=== PATIENT | female | born 1995 | race American Indian/Alaskan Native ===

== ENCOUNTER 2016-08-11 16:56 | Emergency (ER) | payer SELFPAY ==
--- NOTE | 2016-08-11 19:49 | Emergency Department Report ---
Chief Complaint: Vaginal Bleeding Stated Complaint: ABD PAIN Time Seen by Provider: 08/11/16 19:44 - [facility] History of Present Illness: Patient is a 20-year-old female who presents with vaginal bleeding 1 month. Patient states she had a section on 02/19/2016. She states she went to her six-week checkup at her [facility] and received a Depo-Provera injection in June 19. Patient states bleeding began 06/30/2016 and has not seized since then. Patient describes vaginal bleeding as mild to moderate. She also states dysuria 2 days. She denies again any other medications. Patient denies fever/chills/nausea/vomiting/abdominal pain/headache/blurred vision or any other problems - ROS Review of Systems: As noted in HPI - Exam Vital Signs: Vital Signs 08/11/16 17:38 Temperature 98.5 F Pulse Rate 88 Blood Pressure 107/68 O2 Sat by Pulse 99 Oximetry Physical Exam: GENERAL: Alert and oriented x3, no apparent distress, Normal Gait, atraumatic. NECK: Supple. Non edematous, No carotid bruits. No lymphadenopathy or thyromegaly. LUNGS: Symetrical with respiration, No wheezing, no rales or crackles, CTAB. HEART: S1, S2 present, regular rate and rhythm without murmur, no rubs, no gallops. ABDOMEN: No organomegaly was noted,Positive bowel sounds, soft, and non- distended. . Nontender to palpation on all Quadrants, NO CVA tenderness. MSE screening note: Focused history and physical exam performed. Due to findings the following was ordered: ED Medical Decision Making - Lab Data Result diagrams: 08/11/16 20:01 - Medical Decision Making Vital signs stable. CBC normal. Ultrasound and urinalysis pending. Ultrasound normal patient may be seen over at [facility]. Breakthrough bleeding due to Depo-Provera. She may follow up with [facility] for another form of contraception. Needs [facility] referrals. ED Disposition for MSE Condition: Stable
[2016-08-11 20:22] LABS: Basophils % (Auto) 0.3 % (0.0-1.8); Eosinophils % (Auto) 1.1 % (0.0-4.3); Hematocrit 42.2 % (30.3-42.9); Mean Corpuscular HGB Conc 33 % (30-34); Mean Corpuscular Hemoglobin 28 pg (28-32); Mean Corpuscular Volume 84 fl (79-97); Platelet Count 358 K/mm3 (140-440); Red Blood Count 5.05 M/mm3 (3.65-5.03); Red Cell Distribution Width 13.5 % (13.2-15.2); White Blood Count 10.7 K/mm3 (4.5-11.0)
[2016-08-11 20:22] LABS: Bilirubin,Urine NEG (Negative); Blood,Urine LG (Negative); Ketones,Urine NEG (Negative); Leukocyte Esterase,Urine MOD (Negative); Mucus,Urine FEW /HPF; Nitrite,Urine NEG (Negative); Urobilinogen,Urine < 2.0 mg/dL (<2.0)
[2016-08-11 20:23] LABS: RBC,Urine > 182.0 /HPF (0.0-6.0)
--- NOTE | 2016-08-12 02:05 | Ultrasound Report ---
FINAL REPORT PROCEDURE: US TRANSVAGINAL TECHNIQUE: Real-time transabdominal sonography in multiple planes of the pelvis was performed. The pelvic structures, especially the ovaries were not optimally visualized. Transvaginal sonography was then performed to better evaluate the structures and/or abnormalities described below with image documentation. CPT 99353 and 60493 HISTORY: VAGINAL BLEED COMPARISON: No prior studies are available for comparison. FINDINGS: UTERUS Size: 8.9 x 4.1 x 5.8 cm. Endometrial thickness: 3.9 mm. Orientation: anteverted. Cervix: Normal. Fibroids/masses: None. RIGHT Ovary: 3 x 2.7 x 1.7 cm. Appearance: There are multiple small follicular cyst measuring up to 12 millimeters. LEFT Ovary: 3.1 x 1.8 x 1.8 cm. Appearance: There are multiple small follicular cysts measuring up to 10 millimeters.. Pelvic fluid: None. Other: None. IMPRESSION: The uterus is normal. There are small follicular cysts identified on each ovary.
--- NOTE | 2016-08-12 02:06 | Ultrasound Report ---
FINAL REPORT PROCEDURE: US TRANSVAGINAL TECHNIQUE: Real-time transabdominal sonography in multiple planes of the pelvis was performed. The pelvic structures, especially the ovaries were not optimally visualized. Transvaginal sonography was then performed to better evaluate the structures and/or abnormalities described below with image documentation. CPT 98826 and 58317 HISTORY: VAGINAL BLEED COMPARISON: No prior studies are available for comparison. FINDINGS: UTERUS Size: 8.9 x 4.1 x 5.8 cm. Endometrial thickness: 3.9 mm. Orientation: anteverted. Cervix: Normal. Fibroids/masses: None. RIGHT Ovary: 3 x 2.7 x 1.7 cm. Appearance: There are multiple small follicular cyst measuring up to 12 millimeters. LEFT Ovary: 3.1 x 1.8 x 1.8 cm. Appearance: There are multiple small follicular cysts measuring up to 10 millimeters.. Pelvic fluid: None. Other: None. IMPRESSION: The uterus is normal. There are small follicular cysts identified on each ovary. PROCEDURE: TECHNIQUE: HISTORY: COMPARISON: FINDINGS: IMPRESSION:
[2016-08-12 09:55] VITALS: BP 110/66
[2016-08-12] MEDS ORDERED: MOTRIN PO ONE (10:27)
[2016-08-12] MEDS ORDERED: MACROBID PO ONE (10:27)
--- NOTE | 2016-08-12 10:28 | Emergency Department Report ---
ED Female HPI - General Chief complaint: Vaginal Bleeding Stated complaint: ABD PAIN Time Seen by Provider: 08/12/16 09:27 Source: patient Mode of arrival: Ambulatory Limitations: No Limitations - History of Present Illness Initial comments: 20 yo female with no past medical history presents to the hospital complaining of vaginal bleeding for 1 month. Patient states for the first 3 weeks she was using aprox +4-5 pads a day but now have intermittent spotting. Patient has had intermittent superpubic cramping abdominal pain rated 8/10 in intensity for the past 2 days. She received her first control injection shot early June. Next scheduled appointment with [facility] is in September. She is requesting change in or additional control. Patient is sexually active with one partner and does not use condoms. - Related Data Previous Rx's Medication Instructions Recorded Last Taken Type Ibuprofen [Motrin] 600 mg PO Q8H PRN #30 tablet 08/12/16 Unknown Rx Nitrofurantoin Jennings/M-Cryst 100 mg PO Q12HR #14 capsule 08/12/16 Unknown Rx [Macrobid CAP] Allergies Allergy/AdvReac Type Severity Reaction Status Date / Time No Known Allergies Allergy Unverified 08/11/16 17:43 ED Review of Systems ROS: Stated complaint: ABD PAIN Other details as noted in HPI Comment: All other systems reviewed and negative Other: Constitutional: No fevers chills Eyes: No eye pain visual changes ENT: No ear pain or throat pain Neck: Denies pain Respiratory: Denies cough wheezing shortness of breath Cardiovascular: Denies chest pain, palpitations, syncope GI: Denies nausea, vomiting, diarrhea : Occasional dysuria Musculoskeletal: Denies back pain Skin: Denies rash, lesions, erythema Neurologic: Denies headache, numbness, weakness Psychiatric: Denies suicidal ideation, hallucinations ED Past Medical Hx - Past Medical History Previous Medical History?: No - Social History Smoking Status: Never Smoker Substance Use Type: None - Medications Home Medications: Home Medications Medication Instructions Recorded Confirmed Last Taken Type Ibuprofen [Motrin] 600 mg PO Q8H PRN #30 tablet 08/12/16 Unknown Rx Nitrofurantoin Jennings/M-Cryst 100 mg PO Q12HR #14 capsule 08/12/16 Unknown Rx [Macrobid CAP] ED Physical Exam - General Limitations: No Limitations - Other Other exam information: General: No limitations, patient is alert in no acute distress Head exam: Atraumatic, normocephalic Eyes exam: Normal appearance, pupils equal reactive to light, extraocular movements intact ENT: Moist mucous membrane, normal oropharynx Neck exam: Normal inspection, full range of motion, no meningismus nontender Respiratory exam: Clear to auscultation bilateral, no wheezes, rales, crackles Cardiovascular: Normal rate and rhythm, normal heart sounds Abdomen: Soft, nondistended, nontender, with normal bowel sounds, no rebound, or guarding : no bleeding, cmt, or adenxal tenderness. Extremity: Full range of motion normal inspection no deformity Back: Normal Inspection, full range of motion, no tenderness Neurologic: Alert, oriented x3, cranial nerves intact, no motor or sensory deficit Psychiatric: normal affect, normal mood Skin: Warm, dry, intact ED Course Vital Signs 08/11/16 08/11/16 08/12/16 17:38 23:28 05:14 Temperature 98.5 F 98.7 F 98.1 F Pulse Rate 88 72 73 Respiratory 16 70 H Rate Blood Pressure 107/68 Blood Pressure 104/66 111/70 [Left] O2 Sat by Pulse 99 100 100 Oximetry 08/12/16 08/12/16 09:53 09:54 Temperature Pulse Rate 70 Respiratory 18 18 Rate Blood Pressure Blood Pressure 110/66 [Left] O2 Sat by Pulse 100 100 Oximetry - Reevaluation(s) Reevaluation #1: 08/12/16 10:42 jaden provided ED Medical Decision Making - Lab Data Result diagrams: 08/11/16 20:01 Lab Results 08/11/16 08/11/16 08/11/16 Range/Units 20:00 20:01 20:01 WBC 10.7 (4.5-11.0) K/mm3 RBC 5.05 H (3.65-5.03) M/mm3 Hgb 14.0 (10.1-14.3) gm/dl Hct 42.2 (30.3-42.9) % MCV 84 (79-97) fl MCH 28 (28-32) pg MCHC 33 (30-34) % RDW 13.5 (13.2-15.2) % Plt Count 358 (140-440) K/mm3 Lymph % (Auto) 35.9 H (13.4-35.0) % Jennings % (Auto) 6.2 (0.0-7.3) % Eos % (Auto) 1.1 (0.0-4.3) % Baso % (Auto) 0.3 (0.0-1.8) % Lymph # 3.8 (1.2-5.4) K/mm3 Jennings # 0.7 (0.0-0.8) K/mm3 Eos # 0.1 (0.0-0.4) K/mm3 Baso # 0.0 (0.0-0.1) K/mm3 Seg Neutrophils % 56.5 (40.0-70.0) % Seg Neutrophils # 6.1 (1.8-7.7) K/mm3 HCG, Qual Negative (Negative) Urine Color Yellow (Yellow) Urine Turbidity Slightly-cloudy (Clear) Urine pH 6.0 (5.0-7.0) Ur Specific Wayne 1.028 (1.003-1.030) Urine Protein 30 mg/dl (Negative) mg/dL Urine Glucose (UA) Neg (Negative) mg/dL Urine Ketones Neg (Negative) mg/dL Urine Blood Lg (Negative) Urine Nitrite Neg (Negative) Urine Bilirubin Neg (Negative) Urine Urobilinogen < 2.0 (<2.0) mg/dL Ur Leukocyte Esterase Mod (Negative) Urine WBC (Auto) 32.0 H (0.0-6.0) /HPF Urine RBC (Auto) > 182.0 (0.0-6.0) /HPF U Epithel Cells (Auto) 1.0 (0-13.0) /HPF Urine Mucus Few /HPF Blood Type Antibody Screen 08/11/16 Range/Units 20:01 WBC (4.5-11.0) K/mm3 RBC (3.65-5.03) M/mm3 Hgb (10.1-14.3) gm/dl Hct (30.3-42.9) % MCV (79-97) fl MCH (28-32) pg MCHC (30-34) % RDW (13.2-15.2) % Plt Count (140-440) K/mm3 Lymph % (Auto) (13.4-35.0) % Jennings % (Auto) (0.0-7.3) % Eos % (Auto) (0.0-4.3) % Baso % (Auto) (0.0-1.8) % Lymph # (1.2-5.4) K/mm3 Jennings # (0.0-0.8) K/mm3 Eos # (0.0-0.4) K/mm3 Baso # (0.0-0.1) K/mm3 Seg Neutrophils % (40.0-70.0) % Seg Neutrophils # (1.8-7.7) K/mm3 HCG, Qual (Negative) Urine Color (Yellow) Urine Turbidity (Clear) Urine pH (5.0-7.0) Ur Specific Wayne (1.003-1.030) Urine Protein (Negative) mg/dL Urine Glucose (UA) (Negative) mg/dL Urine Ketones (Negative) mg/dL Urine Blood (Negative) Urine Nitrite (Negative) Urine Bilirubin (Negative) Urine Urobilinogen (<2.0) mg/dL Ur Leukocyte Esterase (Negative) Urine WBC (Auto) (0.0-6.0) /HPF Urine RBC (Auto) (0.0-6.0) /HPF U Epithel Cells (Auto) (0-13.0) /HPF Urine Mucus /HPF Blood Type O POSITIVE Antibody Screen Negative - Medical Decision Making Differential UTI, control side effect No signs of , anemia, or instability. Patient recovered antibiotics due to white cells and moderate leukocytes in urine although likely contaminated secondary to vaginal bleeding but patient has low number of the cells on the sample. GC chlamydia pending. Patient informed to go to medical records 3-4 days to obtain results. Patient requesting adjustment in her control however she just received a IM shot in June which lasted 3 months. Intermittent spotting can be a side effect. She was instructed to follow-up with her [facility] for further management. - Differential Diagnosis vaginitis, cervicitis, dysfunction uterine bleeding, uterine fibroids, anem Critical Care Time: No Critical care attestation.: If time is entered above; I have spent that time in minutes in the direct care of this critically ill patient, excluding procedure time. ED Disposition Clinical Impression: Uses control, Abnormal vaginal bleeding Disposition: DISCHARGED TO HOME OR SELFCARE Is pt being admited?: No Does the pt Need Aspirin: No Condition: Stable Instructions: Dysfunctional Uterine Bleeding (ED) Additional Instructions: Take the medication as prescribed. return if symptoms worsen. Prescriptions: Ibuprofen [Motrin] 600 mg PO Q8H PRN #30 tablet PRN Reason: Pain Nitrofurantoin Jennings/M-Cryst [Macrobid CAP] 100 mg PO Q12HR #14 capsule Referrals: DR HERMES [Other] - 3-5 Days (your preflight inspector) Time of Disposition: 10:27
== END 2016-08-12 10:45 | disposition home or self-care (01) ==
LOC: ED 16:56
DX: N93.9 Abnormal uterine and vaginal bleeding, unspecified (principal); Z53.21 Procedure and treatment not carried out due to patient leaving prior to being seen by health care provider
CPT/HCPCS: 36415; 76830; 76856; 81001; 84703; 85025; 86850; 86900; 86901; 87210; 87591

== ENCOUNTER 2020-09-16 07:32 | Observation (INO) | payer OTHER ==
[2020-09-16] MEDS ORDERED: SODIUM CHLORIDE 0.9% 1000 ML 1,000 ML IV ONE (07:45)
--- NOTE | 2020-09-16 07:50 | Event Note ---
ED Screening Note Date of service: 09/16/20 Time: 07:47 ED Screening Note: This 24-year-old female presents to the ED complaining of generalized intermittent sharp abdominal pain that started 3 AM this morning patient states she was sitting when the pain started. Patient admits some vomiting episodes but no diarrhea. Denies any past medical history, Tender to palpation abdomen, some distress due to pain This initial assessment/diagnostic orders/clinical plan/treatment(s) is/are subject to change based on patients health status, clinical progression and re- assessment by fellow clinical providers in the ED. Further treatment and workup at subsequent clinical providers discretion. Patient/guardian urged not to elope from the ED as their condition may be serious if not clinically assessed and managed. Initial orders include: Labs, CT, IV fluids
[2020-09-16] MEDS ORDERED: ONDANSETRON 4 MG/2 ML INJ IV ONE (08:03)
--- NOTE | 2020-09-16 08:03 | Emergency Department Report ---
HPI - General Chief Complaint: Abdominal Pain Time Seen by Provider: 09/16/20 07:56 - HPI HPI: This is a 24-year-old female who presents to the emergency department with complaint of generalized abdominal pain, along with nausea and vomiting, that started at about 3 AM this morning. She denies any vaginal bleeding or discharge, dysuria, back pain, fever, constipation or diarrhea. Currently the pain is 10 out of 10 in intensity and sharp. She says that she has the sensation like she needs to have a bowel movement or pass flatulence but has been able to do so. She denies any recent travel. She ate some Russian food last night, but her ate the same food and does not have any current symptoms. Her last menstrual cycle was 08/12/2020 and she says she is due for a menstrual cycle. She denies any past medical history. She has had 2 previous C-sections. No known aggravating or alleviating factors. ED Past Medical Hx - Past Medical History Previous Medical History?: Yes Additional medical history: childbirth by 2 - Surgical History Past Surgical History?: Yes Additional Surgical History: x 2 - Social History Smoking Status: Never Smoker Substance Use Type: Alcohol - Medications Home Medications: Home Medications Medication Instructions Recorded Confirmed Last Taken Type Ibuprofen [Motrin] 600 mg PO Q8H PRN #30 tablet 08/12/16 Unknown Rx Nitrofurantoin [place]/M-Cryst 100 mg PO Q12HR #14 capsule 08/12/16 Unknown Rx [Macrobid CAP] ED Review of Systems ROS: Stated complaint: ABD PAIN Other details as noted in HPI Comment: All other systems reviewed and negative Constitutional: denies: chills, fever Eyes: denies: eye pain, vision change ENT: denies: ear pain, throat pain Respiratory: denies: cough, shortness of breath Cardiovascular: denies: chest pain, palpitations Gastrointestinal: abdominal pain, nausea, vomiting Genitourinary: denies: dysuria, discharge Musculoskeletal: denies: back pain, arthralgia Skin: denies: rash, lesions Neurological: denies: headache, weakness Physical Exam - Physical Exam Vital Signs: Vital Signs 09/16/20 07:45 Temperature 97.8 F Pulse Rate 80 Respiratory 20 Rate Blood Pressure 75/45 [Left] Blood Pressure 62/26 [Right] O2 Sat by Pulse 99 Oximetry Physical Exam: GENERAL: The patient is well-developed well-nourished. HENT: Normocephalic. Atraumatic. Patient has moist mucous membranes. EYES: Extraocular motions are intact. NECK: Supple. Trachea is midline. CHEST/LUNGS: Clear to auscultation. There is no respiratory distress noted. HEART/CARDIOVASCULAR: Regular. There is no tachycardia. There is no murmur. ABDOMEN: Abdomen is soft. Generalized abdominal tenderness to palpation, lower quadrants greater than upper. Patient has normal bowel sounds. There is no abdominal distention. SKIN: Skin is warm and dry. NEURO: The patient is awake, alert, and oriented. The patient is cooperative. The patient has no focal neurologic deficits. Normal speech. MUSCULOSKELETAL: There is no tenderness or deformity. There is no limitation range of motion. ED Course Vital Signs 09/16/20 07:45 Temperature 97.8 F Pulse Rate 80 Respiratory 20 Rate Blood Pressure 75/45 [Left] Blood Pressure 62/26 [Right] O2 Sat by Pulse 99 Oximetry - Reevaluation(s) Reevaluation #1: 09/16/20 08:44 The patient's qualitative serum test came back positive. A quantitative test has been ordered, as have ultrasounds. The patient says that with this she is G4, P2. She does have a history of what sounds like a previous ectopic that was treated with methotrexate that occurred about 1 to 2 years ago. - Consultations Consultation #1: 09/16/20 11:01 I spoke to the SURVEILLANCE AGENT on-call, Dr. Gtz. We discussed the patient's beta-hCG of 9100, the ultrasound results showing no evidence of IUP with a small echogenic focus seen in the right ovary, as well as the patient's history of previous ectopic. Dr. Gtz is going to come see the patient in the emergency department and says the patient may need a diagnostic laparoscopy. ED Medical Decision Making - Lab Data Result diagrams: 09/16/20 08:11 09/16/20 08:11 Lab Results 09/16/20 09/16/20 09/16/20 Range/Units 08:11 08:11 08:11 WBC 14.8 H (4.5-11.0) K/mm3 RBC 3.93 (3.65-5.03) M/mm3 Hgb 10.9 (10.1-14.3) gm/dl Hct 32.4 (30.3-42.9) % MCV 83 (79-97) fl MCH 28 (28-32) pg MCHC 34 (30-34) % RDW 13.4 (13.2-15.2) % Plt Count 283 (140-440) K/mm3 Add Manual Diff Complete Total Counted 100 Seg Neutrophils % Glue Spreading Machine Operator Seg Neuts % (Manual) 98.0 H (40.0-70.0) % Lymphocytes % (Manual) 1.0 L (13.4-35.0) % Monocytes % (Manual) 1.0 (0.0-7.3) % Nucleated RBC % Not Reportable Seg Neutrophils # Man 14.5 H (1.8-7.7) K/mm3 Band Neutrophils # 0.0 K/mm3 Lymphocytes # (Manual) 0.1 L (1.2-5.4) K/mm3 Abs React Lymphs (Man) 0.0 K/mm3 Monocytes # (Manual) 0.1 (0.0-0.8) K/mm3 Eosinophils # (Manual) 0.0 (0.0-0.4) K/mm3 Basophils # (Manual) 0.0 (0.0-0.1) K/mm3 Metamyelocytes # 0.0 K/mm3 Myelocytes # 0.0 K/mm3 Promyelocytes # 0.0 K/mm3 Blast Cells # 0.0 K/mm3 WBC Morphology Not Reportable Hypersegmented Neuts Not Reportable Hyposegmented Neuts Not Reportable Hypogranular Neuts Not Reportable Smudge Cells Not Reportable Toxic Granulation Not Reportable Toxic Vacuolation Not Reportable Dohle Bodies Not Reportable Pelger-Huet Anomaly Not Reportable Rivera Rods Not Reportable Platelet Estimate Consistent w auto Clumped Platelets Not Reportable Plt Clumps, EDTA Not Reportable Large Platelets Not Reportable Giant Platelets Not Reportable Platelet Satelliting Not Reportable Plt Morphology Comment Not Reportable RBC Morphology Normal Dimorphic RBCs Not Reportable Polychromasia Not Reportable Hypochromasia Not Reportable Poikilocytosis Not Reportable Anisocytosis Not Reportable Microcytosis Not Reportable Macrocytosis Not Reportable Spherocytes Not Reportable Pappenheimer Bodies Not Reportable Sickle Cells Not Reportable Target Cells Not Reportable Tear Drop Cells Not Reportable Ovalocytes Not Reportable Helmet Cells Not Reportable Basilio-[place] Bodies Not Reportable Mosier Rings Not Reportable [place] Cells Not Reportable Bite Cells Not Reportable Crenated Cell Not Reportable Elliptocytes Not Reportable Acanthocytes (Spur) Not Reportable Rouleaux Not Reportable Hemoglobin C Crystals Not Reportable Schistocytes Not Reportable Malaria parasites Not Reportable Edwin Bodies Not Reportable Hem Pathologist Commnt No Sodium 138 (137-145) mmol/L Potassium 4.0 (3.6-5.0) mmol/L Chloride 103.8 (98-107) mmol/L Carbon Dioxide 28 (22-30) mmol/L Anion Gap 10 mmol/L BUN 12 (7-17) mg/dL Creatinine 0.8 (0.6-1.2) mg/dL Estimated GFR > 60 ml/min BUN/Creatinine Ratio 15 % Glucose 224 H (65-100) mg/dL Calcium 8.5 (8.4-10.2) mg/dL Total Bilirubin 0.50 (0.1-1.2) mg/dL AST 10 (5-40) units/L ALT 9 (7-56) units/L Alkaline Phosphatase 60 (35-129) units/L Total Protein 6.2 L (6.3-8.2) g/dL Albumin 3.9 (3.9-5) g/dL Albumin/Globulin Ratio 1.7 % Lipase 20 (13-60) units/L HCG, Qual Positive (Negative) HCG, Quant (0-4) mIU/mL Urine Color (Yellow) Urine Turbidity (Clear) Urine pH (5.0-7.0) Ur Specific [place] (1.003-1.030) Urine Protein (Negative) mg/dL Urine Glucose (UA) (Negative) mg/dL Urine Ketones (Negative) mg/dL Urine Blood (Negative) Urine Nitrite (Negative) Urine Bilirubin (Negative) Urine Urobilinogen (<2.0) mg/dL Ur Leukocyte Esterase (Negative) Urine WBC (Auto) (0.0-6.0) /HPF Urine RBC (Auto) (0.0-6.0) /HPF U Epithel Cells (Auto) (0-13.0) /HPF Urine Mucus /HPF 09/16/20 09/16/20 Range/Units 08:11 10:12 WBC (4.5-11.0) K/mm3 RBC (3.65-5.03) M/mm3 Hgb (10.1-14.3) gm/dl Hct (30.3-42.9) % MCV (79-97) fl MCH (28-32) pg MCHC (30-34) % RDW (13.2-15.2) % Plt Count (140-440) K/mm3 Add Manual Diff Total Counted Seg Neutrophils % Seg Neuts % (Manual) (40.0-70.0) % Lymphocytes % (Manual) (13.4-35.0) % Monocytes % (Manual) (0.0-7.3) % Nucleated RBC % Seg Neutrophils # Man (1.8-7.7) K/mm3 Band Neutrophils # K/mm3 Lymphocytes # (Manual) (1.2-5.4) K/mm3 Abs React Lymphs (Man) K/mm3 Monocytes # (Manual) (0.0-0.8) K/mm3 Eosinophils # (Manual) (0.0-0.4) K/mm3 Basophils # (Manual) (0.0-0.1) K/mm3 Metamyelocytes # K/mm3 Myelocytes # K/mm3 Promyelocytes # K/mm3 Blast Cells # K/mm3 WBC Morphology Hypersegmented Neuts Hyposegmented Neuts Hypogranular Neuts Smudge Cells Toxic Granulation Toxic Vacuolation Dohle Bodies Pelger-Huet Anomaly Rivera Rods Platelet Estimate Clumped Platelets Plt Clumps, EDTA Large Platelets Giant Platelets Platelet Satelliting Plt Morphology Comment RBC Morphology Dimorphic RBCs Polychromasia Hypochromasia Poikilocytosis Anisocytosis Microcytosis Macrocytosis Spherocytes Pappenheimer Bodies Sickle Cells Target Cells Tear Drop Cells Ovalocytes Helmet Cells Basilio-[place] Bodies Mosier Rings Nata Cells Bite Cells Crenated Cell Elliptocytes Acanthocytes (Spur) Rouleaux Hemoglobin C Crystals Schistocytes Malaria parasites Edwin Bodies Hem Pathologist Commnt Sodium (137-145) mmol/L Potassium (3.6-5.0) mmol/L Chloride (98-107) mmol/L Carbon Dioxide (22-30) mmol/L Anion Gap mmol/L BUN (7-17) mg/dL Creatinine (0.6-1.2) mg/dL Estimated GFR ml/min BUN/Creatinine Ratio % Glucose (65-100) mg/dL Calcium (8.4-10.2) mg/dL Total Bilirubin (0.1-1.2) mg/dL AST (5-40) units/L ALT (7-56) units/L Alkaline Phosphatase (35-129) units/L Total Protein (6.3-8.2) g/dL Albumin (3.9-5) g/dL Albumin/Globulin Ratio % Lipase (13-60) units/L HCG, Qual (Negative) HCG, Quant 9109 H (0-4) mIU/mL Urine Color Yellow (Yellow) Urine Turbidity Slightly-cloudy (Clear) Urine pH 5.0 (5.0-7.0) Ur Specific [place] 1.025 (1.003-1.030) Urine Protein 30 mg/dl (Negative) mg/dL Urine Glucose (UA) Neg (Negative) mg/dL Urine Ketones 20 (Negative) mg/dL Urine Blood Neg (Negative) Urine Nitrite Neg (Negative) Urine Bilirubin Neg (Negative) Urine Urobilinogen 2.0 (<2.0) mg/dL Ur Leukocyte Esterase Neg (Negative) Urine WBC (Auto) 2.0 (0.0-6.0) /HPF Urine RBC (Auto) 1.0 (0.0-6.0) /HPF U Epithel Cells (Auto) 7.0 (0-13.0) /HPF Urine Mucus 3+ /HPF - Radiology Data Radiology results: report reviewed EXAMINATION: Obstetrical Ultrasound, 09/16/2020 INDICATION: Abdominal pain in early COMPARISON: Pelvic ultrasound, 08/12/2016 FINDINGS: The uterus is normal in size measuring 9.7 x 5.1 x 7.0 cm. The endometrium is thickened to a maximum of 2.6 cm. No intrauterine is identified. There is Doppler flow demonstrated to both adnexal regions. The chef manager noted a slightly echogenic region within the right ovary. The left adnexal region appears normal. There is no free pelvic fluid. IMPRESSION: 1. No intrauterine is visualized on today's study. Diagnostic considerations include failed or failing , too early to visualize or less likely ectopic . Close clinical and laboratory follow-up is recommended. 2. Subtle echogenic region within the right ovary that may be within normal limits. However, short- term follow-up of this finding is suggested in this patient with a positive test and no intrauterine to exclude the possibility of ectopic . - Medical Decision Making This patient presents to the emergency department with acute generalized abdominal pain, nausea and vomiting, that started around 3 AM. On examination the patient has some tenderness to palpation to the generalized abdomen but the lower quadrants are worse than the upper quadrants. No abdominal distention. The patient presented to triage with some hypotension. An IV was placed and she was given a liter of IV fluid, as well as a dose of Zofran. The patient's blood pressure improved and remained within the normal limits throughout the rest of her ED course. The patient's labs came back showing that she was on the qualitative test. The quantitative test was then sent and it came back with a beta-hCG of about 9100. The rest of the patient's labs were unremarkable including CBC, metabolic panel, urinalysis, other than a leukocytosis of about 15,000 with a neutrophilia. A transvaginal/ ultrasound was performed that came back showing no intraute rine with a small echogenic focus in the right ovary. No free fluid. Patient continues to have some tenderness to palpation throughout the abdomen. With a beta-hCG of about 9100 we would expect to see evidence of intrauterine on ultrasound. The patient has not been having any vaginal bleeding that would be consistent with a spontaneous miscarriage. For this reason I contacted the SURVEILLANCE AGENT on-call, Dr. Gtz, who came to evaluate the patient and plans to take the patient to the operating room for a diagnostic laparoscopy for a suspected ectopic . Critical Care Time: Yes Critical care time in (mins) excluding proc time.: 35 Critical care attestation.: If time is entered above; I have spent that time in minutes in the direct care of this critically ill patient, excluding procedure time. Critical care time was spent on this patient in doing her initial evaluation, multiple reevalu ations, ordering and interpretation of labs and imaging, discussion with the SURVEILLANCE AGENT on-call, and multiple discussions with the patient. Critical Care Time: 35 minutes ED Disposition Clinical Impression: , location unknown, Pelvic pain, Encounter for assessment for suspected ectopic Abdominal pain Qualifiers: Abdominal location: unspecified location Qualified Code(s): R10.9 - Unspecified abdominal pain Disposition: OP ADMIT IP TO THIS HOSP Is pt being admited?: Yes Condition: Serious Instructions: Abdominal Pain (ED) Time of Disposition: 14:19
[2020-09-16 08:20] LABS: Hematocrit 32.4 % (30.3-42.9); Hemoglobin 10.9 gm/dl (10.1-14.3); Mean Corpuscular HGB Conc 34 % (30-34); Mean Corpuscular Volume 83 fl (79-97); Platelet Count 283 K/mm3 (140-440); Red Blood Count 3.93 M/mm3 (3.65-5.03); Red Cell Distribution Width 13.4 % (13.2-15.2)
[2020-09-16 08:38] LABS: Alanine Aminotransferase 9 units/L (7-56); Albumin 3.9 g/dL (3.9-5); BUN/Creatinine Ratio 15; Blood Urea Nitrogen 12 mg/dL (7-17); Calcium 8.5 mg/dL (8.4-10.2); Hemolysis Index 2
[2020-09-16] MEDS ORDERED: ACETAMINOPHEN 325 MG TAB PO ONE (09:03)
[2020-09-16 10:24] LABS: Bilirubin,Urine NEG (Negative); Blood,Urine NEG (Negative); Color,Urine Yellow (Yellow); Mucus,Urine 3+ /HPF
--- NOTE | 2020-09-16 10:39 | Ultrasound Report ---
EXAMINATION: Obstetrical Ultrasound, 09/16/2020 INDICATION: Abdominal pain in early COMPARISON: Pelvic ultrasound, 08/12/2016 FINDINGS: The uterus is normal in size measuring 9.7 x 5.1 x 7.0 cm. The endometrium is thickened to a maximum of 2.6 cm. No intrauterine is identified. There is Doppler flow demonstrated to both adnexal regions. The bag patcher noted a slightly echogeni c region within the right ovary. The left adnexal region appears normal. There is no free pelvic flui d. IMPRESSION: 1. No intrauterine is visualized on today's study. Diagnostic considerations include faile d or failing , too early to visualize or less likely ectopic . Close clin ical and laboratory follow-up is recommended. 2. Subtle echogenic region within the right ovary that may be within normal limits. However, short-te rm follow-up of this finding is suggested in this patient with a positive test and no intra uterine to exclude the possibility of ectopic . Signer Name: Viviana Wilson MD Signed: 09/16/2020 10:34 AM Workstation Name: [id number]
--- NOTE | 2020-09-16 10:39 | Ultrasound Report ---
EXAMINATION: Obstetrical Ultrasound, 09/16/2020 INDICATION: Abdominal pain in early COMPARISON: Pelvic ultrasound, 08/12/2016 FINDINGS: The uterus is normal in size measuring 9.7 x 5.1 x 7.0 cm. The endometrium is thickened to a maximum of 2.6 cm. No intrauterine is identified. There is Doppler flow demonstrated to both adnexal regions. The prison librarian noted a slightly echogeni c region within the right ovary. The left adnexal region appears normal. There is no free pelvic flui d. IMPRESSION: 1. No intrauterine is visualized on today's study. Diagnostic considerations include faile d or failing , too early to visualize or less likely ectopic . Close clin ical and laboratory follow-up is recommended. 2. Subtle echogenic region within the right ovary that may be within normal limits. However, short-te rm follow-up of this finding is suggested in this patient with a positive test and no intra uterine to exclude the possibility of ectopic . Signer Name: Viviana Wilson MD Signed: 09/16/2020 10:34 AM Workstation Name: [id number]
[2020-09-16 10:47] LABS: Platelet Estimate Consistent w Auto; RBC Morphology Normal; Total Cells Counted 100
[2020-09-16] MEDS ORDERED: LIDOCAINE MPF (2%) 20 MG/1 ML VIAL 5 ML ONE (12:40)
[2020-09-16] MEDS ORDERED: propofoL 200 MG/20 ML VIAL IV ONE (12:40)
[2020-09-16] MEDS ORDERED: HYDROmorphone 1 MG/1 ML INJ ONE (12:40)
[2020-09-16] MEDS ORDERED: ROCURONIUM 50 MG/5 ML INJ IV ONE ×2 (12:40→16:00)
[2020-09-16] MEDS ORDERED: BUPIVACAINE/PF (0.5%) 5 MG/1 ML 30 ML VIAL INFILTRATI ONE ×2 (12:47→14:05)
--- NOTE | 2020-09-16 13:04 | Anesthesia Consultation ---
Anesthesia Consult and Med Hx Date of service: 09/16/20 - Airway Anesthetic Teeth Evaluation: Good ROM Head & Neck: Adequate Mental/Hyoid Distance: Adequate Mallampati Class: Class II Intubation Access Assessment: Probably Good - Pre-Operative Health Status ASA Pre-Surgery Classification: ASA1, Emergency Proposed Anesthetic Plan: General - Additional Comments Anesthesia Medical History Comments: acute abdominal pain requiring diagnostic laparotomy
--- NOTE | 2020-09-16 13:04 | Anesthesia Day of Surgery ---
Anesthesia Day of Surgery - Day of Surgery Patient Examined: Yes Patient H&P Reviewed: Yes Patient is NPO: Yes
[2020-09-16] MEDS ORDERED: LACTATED RINGERS 1,000 ML ONE ×3 (13:18→16:08)
[2020-09-16] MEDS ORDERED: MIDAZOLAM 2 MG/2 ML INJ ONE (13:22)
--- NOTE | 2020-09-16 13:23 | History and Physical Report ---
History of Present Illness Date of examination: 09/16/20 Chief complaint: abdominal/pelvic pain History of present illness: 24yo at 5wks by LMP 08/12/2020 presents with complaint of 1 day history of abdominal/pelvic pain. Symptoms were sudden in onset, located in the midline lower abdominal area. Quality is sharp/stabbing, associated with nausea. She denies alleviating or exacerbating factors. She was unaware of until ED evaluation. She denies vomiting, chest pain, or shortness of breath. She denies vaginal bleeding or exposure to STD. Her air analyst history is significant for p rior ectopic 2 years ago, treated with methotrexate. She does not currently have a leak detection engineer. She has no additional complaints. 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 History: denies: abnormal PAP smear, chlamydia, gonorrhea Family/Genetic History: none Social history: no significant social history - Obstetrical History : 4 Para: 2 Hx # Term Pregnancies: 2 Number of Living Children: 2 Medications and Allergies Allergies Allergy/AdvReac Type Severity Reaction Status Date / Time No Known Allergies Allergy Verified 09/16/20 12:42 Home Medications Medication Instructions Recorded Confirmed Last Taken Type Ibuprofen [Motrin] 600 mg PO Q8H PRN #30 tablet 08/12/16 Unknown Rx Nitrofurantoin [place]/M-Cryst 100 mg PO Q12HR #14 capsule 08/12/16 Unknown Rx [Macrobid CAP] Review of Systems Constitutional: no weight loss, no fever, no chills, no sweats, no weakness, no poor appetite Eyes: normal appearance Ears, nose, mouth and throat: no ear pain Cardiovascular: no chest pain, no palpitations Respiratory: no cough Gastrointestinal: abdominal pain, nausea, no vomiting, no diarrhea, no constipation Genitourinary: no dysuria Musculoskeletal: no muscle weakness Neurological: no migraines Psychiatric: no anxiety Endocrine: no cold intolerance, no heat intolerance - Vital Signs Vital signs: Vital Signs Temp Pulse Resp BP Pulse Ox 97.8 F 80 20 62/26 99 09/16/20 07:45 09/16/20 07:45 09/16/20 07:45 09/16/20 07:45 09/16/20 07:45 Temp Pulse Resp BP Pulse Ox 97.8 F 98 H 16 112/67 100 09/16/20 07:45 09/16/20 13:15 09/16/20 13:15 09/16/20 13:15 09/16/20 13:15 - Physical Exam Breasts: Positive: deferred Cardiovascular: Regular rate Lungs: Positive: Clear to auscultation Abdomen: Positive: normal appearance, soft, tenderness (midline, no rebound or guarding) Genitourinary (Female): Positive: normal external genitalia Vagina: Positive: normal moisture Cervix: Positive: discharge (scant white discharge). Negative: lesion Uterus: Positive: normal size Extremities: Positive: normal Results Result Diagrams: 09/16/20 08:11 09/16/20 08:11 Abnormal lab results 09/16/20 09/16/20 09/16/20 Range/Units 08:11 08:11 08:11 WBC 14.8 H (4.5-11.0) K/mm3 Seg Neuts % (Manual) 98.0 H (40.0-70.0) % Lymphocytes % (Manual) 1.0 L (13.4-35.0) % Seg Neutrophils # Man 14.5 H (1.8-7.7) K/mm3 Lymphocytes # (Manual) 0.1 L (1.2-5.4) K/mm3 Glucose 224 H (65-100) mg/dL Total Protein 6.2 L (6.3-8.2) g/dL HCG, Quant 9109 H (0-4) mIU/mL All other labs normal. Assessment and Plan manager call to OR - Patient Problems (1) , location unknown Status: Acute Plan to address problem: -usg/labs reviewed -quant 9100, no IUP confirmed -findings reviewed with patient at length -concern for ectopic although not visualized on imaging -options for management of labs findings reviewed to include surgical vs medical vs expectant management -due to elevated quant and physical exam findings, patient not an ideal c andidate for expectant or medical management-Diagnostic Laparaoscopy, ectopic removal, possible salpingectomy, possible oophorectomy, possible laparotomy, dilation and currettage and any other indicated procedures recommended. R/B/A/I to these procedures reviewed at length with both patient and spouse, all questions answered, patient expressed understanding and elects to proceed -OR staff/anesthesia aware. (2) Pelvic pain Status: Acute
[2020-09-16] MEDS ORDERED: ceFAZolin 1 GM VIAL ONE ×2 (13:36)
[2020-09-16] MEDS ORDERED: ONDANSETRON 4 MG/2 ML INJ ONE (13:58)
[2020-09-16] MEDS ORDERED: dexAMETHasone 20 MG/5 ML VIAL ONE (13:58)
[2020-09-16] MEDS ORDERED: SODIUM CHLORIDE 0.9% IRRIG SOLN 2000 ML IR ONE (14:05)
[2020-09-16] MEDS ORDERED: SODIUM CHLORIDE 0.9% IRR 1,500 ML BOTTLE IR ONE (14:05)
[2020-09-16] MEDS ORDERED: ONDANSETRON 4 MG/2 ML INJ IV PRN (14:55)
[2020-09-16] MEDS ORDERED: HYDROmorphone 1 MG/1 ML INJ IV PRN ×2 (14:55)
[2020-09-16] MEDS ORDERED: KETOROLAC 30 MG/1 ML INJ ONE (15:10)
[2020-09-16] MEDS ORDERED: NEOSTIGMINE 10MG/10 ML INJ MDV ONE (15:11)
[2020-09-16] MEDS ORDERED: GLYCOPYRROLATE 0.4 MG/2 ML INJ ONE (15:11)
[2020-09-16] MEDS ORDERED: SUGAMMADEX SODIUM 200 MG/2 ML VIAL IV ONE (16:10)
[2020-09-16] MEDS ORDERED: SILVER NITRATE APPLICATOR 1 EA TP ONE ×3 (16:16→16:23)
[2020-09-16] MEDS ORDERED: NALOXONE 0.4 MG/1 ML INJ IV PRN (16:36)
[2020-09-16] MEDS ORDERED: ACETAMINOPHEN 325 MG TAB PO PRN (16:36)
--- NOTE | 2020-09-16 16:36 | Post Operative Note ---
Pre-op diagnosis: unknown location Post-op diagnosis: other (Left ovarian ectopic ) Findings: 9wk uterus, normal bilateral fallopian tubes, normal right ovary, left hemorrhagic ovary with products of conception, 1000 cc blood in pelvis Procedure: Right oophorectomy, lysis of adhesions Anesthesia: GETA Surgeon: WALKER MENON Estimated blood loss: other (1000) Pathology: list (left ovary with products of conception) Specimen disposition: to lab Condition: stable Disposition: PACU (observation)
--- NOTE | 2020-09-16 16:52 | Post Anesthesia Evaluation ---
- Post Anesthesia Evaluation Patient Participated: Yes Airway Patent: Yes Stable Respiratory Function: Yes Nausea/Vomiting: No Temp > 96.8F: Yes Pain Manageable: Yes Adequeate Hydration: Yes Anesthesia Complications: No Block Receding Appropriately: Not Applicable Patient on Ventilator: No
[2020-09-16] MEDS ORDERED: D5W/LACTATED RINGERS 1,000 ML IV SCH (17:00)
[2020-09-16] MEDS: oxyCODONE /ACETAMINOPHEN 5-325MG TAB PO PRN (22:31)
[2020-09-17 02:09] LABS: Hematocrit 22.9 % (30.3-42.9); Hemoglobin 7.7 gm/dl (10.1-14.3)
[2020-09-17 05:48] LABS: Hematocrit 22.3 % (30.3-42.9); Hemoglobin 7.3 gm/dl (10.1-14.3)
[2020-09-17 09:48] VITALS: BP 101/54
[2020-09-17] MEDS: oxyCODONE /ACETAMINOPHEN 5-325MG TAB PO PRN (09:48)
--- NOTE | 2020-09-17 10:44 | Discharge Summary ---
Providers - Providers Date of Admission: 09/16/20 16:36 Date of discharge: 09/17/20 Attending physician: WALKER MENON MD Primary care physician: ILAN RANGEL MD Hospitalization Reason for admission: unknown location, abdominal/pelvic pain Condition: Serious Pertinent studies: Pelvic Ultrasound Procedures: Diagnostic Laparoscopy, Left Oophorectomy, Lysis of Adhesions Hospital course: The patient presented with severe pelvic pain. Imaging and lab results were suggestive of ectopic with possible rupture. The decision was made to proceed with Diagnostic Laparoscopy. For details of procedure please see operative report. Findings were significant for ruptured ovarian ectopic . On POD 1, the patient was tolerating po, ambulating and voiding without assistance. Pain controlled on oral medications. She had stable vital signs and hematocrit, desired and was deemed appropriate for discharge. Disposition: DC- TO HOME OR SELFCARE - Discharge Diagnoses (1) Pelvic pain Status: Resolved (2) Ruptured ectopic Status: Resolved (3) S/P left oophorectomy Status: Acute Core Measure Documentation - Palliative Care Palliative Care/ Comfort Measures: Not Applicable - Core Measures Any of the following diagnoses?: none - VTE Discharge Requirements Deep Vein Thrombosis/Pulmonary Embolism Present on Admission: No - Stroke Discharge Requirements Statin for LDL = or >70 mg/dl on DC: Not Applicable Exam - Constitutional Vitals: Temp Pulse Resp BP Pulse Ox 98 F 79 18 101/54 98 09/17/20 08:00 09/17/20 08:00 09/17/20 09:48 09/17/20 08:00 09/17/20 08:00 General appearance: Present: no acute distress - EENT Eyes: Present: EOM intact ENT: hearing intact - Neck Neck: Present: normal ROM - Respiratory Respiratory effort: normal Respiratory: bilateral: CTA - Cardiovascular Rhythm: regular - Extremities Extremities: No edema Peripheral Pulses: within normal limits - Abdominal General gastrointestinal: Present: soft, non-tender, normal bowel sounds, other (incisions c/d/i) Female genitourinary: Present: deferred - Musculoskeletal Musculoskeletal: strength equal bilaterally - Psychiatric Psychiatric: appropriate mood/affect Plan Activity: other (pelvic rest) Diet: regular Wound: keep clean and dry Special Instructions: no heavy lifting Follow up with: PRIMARY CARE, [Primary Care Provider] - 7 Days ([address] [address] [id number]) Prescriptions: Ferrous Sulfate [Ferrous Sulfate 324 MG] 324 mg PO BID #60 tablet. Ibuprofen [Motrin 800 MG tab] 800 mg PO Q8HR PRN #60 tablet PRN Reason: Pain, Moderate (4-6) oxyCODONE /ACETAMINOPHEN [Percocet 5/325] 1 tab PO Q6HR PRN #10 tablet PRN Reason: Pain , Severe (7-10)
--- NOTE | 2020-09-17 12:41 | Post Anesthesia Evaluation ---
- Post Anesthesia Evaluation Patient Participated: No Airway Patent: No Stable Respiratory Function: No Nausea/Vomiting: No Temp > 96.8F: No Pain Manageable: No Adequeate Hydration: No Anesthesia Complications: No Block Receding Appropriately: No Patient on Ventilator: No Other Comments: Patient already discharged home on arrival.
--- NOTE | 2020-09-23 13:40 | Operative Report ---
Operative Report Operative Report: Date of procedure:09/16/2020 Pre-op diagnosis: 1. unknown location 2. Pelvic pain 3. Suspected ectopic Post-op diagnosis: Left ovarian ruptured ectopic Procedure: 1. Examination under anesthesia 2. Operative laparoscopy 3. Laparoscopic right oophorectomy 4. Lysis of Adhesions Surgeon: Dr. Edil Gtz Identity Management Consultant:Dr. Tamika Rodríguez Indications: 24yo at 5wks by LMP 08/12/2020 presents with complaint of 1 day history of abdominal/pelvic pain. Quantitative hcg 9107, no IUP seen on pelvic ultrasound. Findings significant for suspected ectopic . Given her pain, physical exam, and ultrasound findings, the presentation was consistent with a diagnosis of ruptured ectopic . The patient was counseled on all the surgical and medical treatment options including expectant management, methotrexate, diagnostic laparoscopy, laparoscopic salpingectomy or oophorectomy vs open laparotomy. Discussed potential for recurrence of ectopic and need for IVF if salpingectomy or oophorectomy completed. The decision was made to proceed with diagnostic laparoscopy and possible salpingectomy versus ooporectomy. The risk and benefits of the procedure were reviewed in detail including but not limited to the risk of bleeding, infection and wound complications, pain, damage to surrounding organs such as bowel, bladder, nerves, and vessels, need for further procedures. The patient consented to the procedure. All of her questions were answered. Findings: 1. Approximately 1000ml of blood and clot in the pelvis 2. Hemoorhagic left ovary with ectopic and normal left fallopian tube 3. normal right ovary and fallopian tube 4. normal uterus with adhesion from the fundus to the abdominal wall 5. Normal-appearing appendix and upper abdominal anatomic survey. Anesthesia: EBL:1000ml IVF: 2400cc UO: 50cc Abx: 2g Ancef Specimens: left ovary and presumed ectopic Complications:blood accumulation in the pelvis Condition: Stable to PACU Procedure in detail: The patient's history and physical were reviewed, and she was taken to the operating room. A timeout was performed confirming the correct patient and procedure. SCDs were placed. After adequate general anesthesia was achieved without difficulty the patient was placed in the dorsal low lithotomy position using yellow fin stirrups. She was then prepped and draped in the normal sterile fashion. A spreader-out was done with the entire OR staff confirming the correct patient and procedure. An exam under anesthesia was performed. A Bedoya catheter was placed for 10cc of clear urine. A sterile speculum was inserted into the vagina, and the anterior lip of the cervix was grasped with a single-toothed tenaculum. An acorn uterine manipulator was then gently inserted through the cervix without difficulty and articulated with the single-toothed tenaculum. The speculum was removed from the vagina. Attention was then turned to the abdomen. A 1-cm incision was made with the knife vertically at the umbilicus following i njection of 1% plain lidocaine. The umbilicus was everted and the abdominal wall elevated. The VersaStep needle was placed through the skin incision at the base of the umbilicus and directed at a 45 degree angle to enter the peritoneal cavity. Intraabdominal placement was confirmed using the saline drop test. Carbon dioxide gas was then connected to the VersaStep and the opening pressure was low at 6 mmHg. Pneumoperitoneum was then established with CO2 gas to a pressure of 15 mmHg. The VersaStep needle was removed and a 5mm blunt trocar was then inserted through the umbilical port. The 5mm 0-degree laparoscope was then placed through this trocar and intraperitoneal placement confirmed. A careful survey of the underlying structures identified no evidence of bowel or vascular injury at the laparoscopic entry site. Upon entry, there was noted to be a significant amount of blood and clots in the pelvis. Findings consistent with ruptured ectopic . The patient was then placed in Trendelenburg position. The skin was infiltrated with local anesthesia and a 5-mm transverse skin incision made in the left lower quadrants. A 5-mm laparoscopic trocar was inserted into the peritoneal cavity under direct laparoscopic visualization, lateral to the visualized inferior epigastric vessels. The procedure was repeated to facilitate placement of a 10 trochar, 5cm above the symphisis pubis midline at the location of the patients previous pffanensteil incision. The trochar was advanced under direct visualization. Using atraumatic graspers, the bowel was lifted out of the pelvis and a thorough pelvic survey undertaken. The above-noted surgical findings were identified, including approximately 500cc of blood and clot in the pelvis. The adhesion noted at the uterine fundus was lysed using the Ligasure. This was completed to facilitate adequate inspection of the right fallopian tube and ovary. The blood was suctioned from the pelvis using the 5mm suction observer helper. Thorough inspection of the uterus, fallopian tubes and ovaries bilaterally with the findings as noted. Blood was noted to be actively coming from the left ovary consistent with suspected ruptured ectopic . The suction irrigation device was used to clear the pelvis of clot and hemoperitoneum, and the decision made to proceed with laparoscopic left oophorectomy. Survey of the upper abdomen also revealed pooled blood around the area of the liver, but the visualized liver was normal with smooth edge and glistening. Images collected. After the IP ligament was identified, the left ovary, was then held distally, and the oophorectomy was performed using the 5-mm LigaSure device, sequentially coagulating and transecting until complete resection was accomplished. This was done with clear visualization of the ureter. The operative site was hemostatic. The left ovary containing the ectopic was removed out of the abdomen using a 10mm Endo Catch bag through midline pffanensteil port. All surgical sites were hemostatic. All clot and remaining blood were evacuated out of the abdomen and pelvis using the suction observer helper. Using suction, the intra-abdominal pressure was brought to 8 mmHg, and all surgical sites remained hemostatic. At this point, the procedure was deemed complete. Negro-Carine Laparoscopic Port Closure System was used to close the 10mm port site. All trocars were removed from the abdomen under direct visualization and all trocar sites were hemostatic. The patient was brought out of Trendelenburg position. A running subcuticular stitch with 4.0 monocryl was used to reapproximate the skin, at the midline 10mm port site. Attention was then turned to the umbilicus. Copious bright red blood was noted. Areas of bleeding were coagulated using the bovie. Copious blood continued from the site. The decision was made the reinflate the abdomen to reinspect for bleeding. The 5mm umbilical and left lower quadrant trochars were replaced. Inspection of the pelvis was significant for an additional 500 cc of blood in the pelvis. This was suctioned. Thorough reinspection of the abdomen and pelvis was systematically completed. The ope rative sites and all areas around trocar placement were noted to be hemostatic. No active bleeding was noted. Again, all trocars were removed from the abdomen under direct visualization. The umbilical and left lower quadrant skin defects were reapproximated with 4-0 monocryl and reinforced with dermabond. Attention was returned to the vagina and the speculum was replaced. The acorn uterine manipulator was removed. The tenaculum was removed from the anterior lip of the cervix. Bleeding at the tenaculum site was coagulated with silver nitrate sticks until hemostatic. The speculum was removed. The bedoya catheter was removed. According to the operating room staff, all sponge, lap, and needle counts were correct x3. The patient was successfully extubated and taken to the recovery room in stable condition.
== END 2020-09-17 11:40 | disposition home or self-care (01) ==
LOC: ED 07:32 → OB 16:36
PROVIDERS: ADMIT Obstetrics & Gynecology; ATTEND Obstetrics & Gynecology
DX: O00.202 Left ovarian pregnancy without intrauterine pregnancy (principal); R10.2 Pelvic and perineal pain; R11.2 Nausea with vomiting, unspecified; Z98.891 History of uterine scar from previous surgery
CPT/HCPCS: 36415; 59151; 76801; 76817; 80053; 81001; 83690; 84702; 84703; 85014; 85018; 85025; 86850; 86900; 86901; 87210; 87591; 88305; 96361; 96374; 99291; A4217; G0378; J0690; J1100; J1170; J1885; J2250; J2405; J2704; J2710; J7030; J7120; J7121; 85007